=== PATIENT | male | born 1955 | race Caucasian/White ===

== ENCOUNTER 2022-06-27 07:19 | Day surgery (SDC) | payer OTHER ==
[~2022-06-27] VITALS: Ht 160 cm; Wt 113.0 kg
[~2022-06-27 07:19] MED LIST: SODIUM CHLORIDE 0.9% 1,000 ML ONE
[2022-06-27 07:58] LABS: COVID AG,FIA SOURCE NASAL SWAB
[2022-06-27] MEDS ORDERED: SODIUM CHLORIDE 0.9% 1,000 ML IV ONE (08:00)
[2022-06-27] MEDS ORDERED: LOSA100T58 PO (08:09)
[2022-06-27] MEDS ORDERED: AMLO10TA55 PO (08:09)
[2022-06-27] MEDS ORDERED: ACET-66 PO (08:09)
== END 2022-06-27 11:20 | disposition home or self-care (01) ==
LOC: SURGERY 07:19
PROVIDERS: ATTEND Internal Medicine Gastroenterology
DX: K62.1 Rectal polyp (principal); K64.0 First degree hemorrhoids; K22.70 Barrett's esophagus without dysplasia; K29.70 Gastritis, unspecified, without bleeding; Z20.822 Contact with and (suspected) exposure to COVID-19; Z79.899 Other long term (current) drug therapy; Z98.890 Other specified postprocedural states
CPT/HCPCS: 45385; 43239; 87426; C9803; C1769; J7030; 88305